=== PATIENT | male | born 1995 | race Caucasian/White ===

== ENCOUNTER 2019-09-29 11:28 | Emergency (ER) | payer OTHER, SELFPAY ==
[2019-09-29 12:00] VITALS: BP 136/67; PULSE 89; RESP 20; TEMP 37.1; O2SAT 99
--- NOTE | 2019-09-29 12:11 | ED.GENADULT ---
HPI - General Adult General Chief complaint: Unspecified Stated complaint: Flu like symptoms Time Seen by Provider: 09/29/19 12:11 Source: patient and family History of Present Illness HPI narrative: Patient presents with generalized body aches and fever. Some nasal congestion but denies any ear pain. Patient states he was nauseated last night but states nausea has resolved. Patient states he is tolerating liquids today denies any abdominal pain. States he is a normally healthy individual and he did miss work and needs a work note. Related Data Allergies Allergy/AdvReac Type Severity Reaction Status Date / Time No Known Allergies Allergy Verified 09/29/19 12:10 Review of Systems Review of Systems: Narrative: CONSTITUTIONAL: Denies fever, chills, or sweats. EYES: Denies visual changes, redness, or discharge. ENT: Denies rhinorrhea, congestion, sore throat, or otalgia. CARDIOVASCULAR: Denies chest pain, palpitations, or edema. RESPIRATORY: Denies cough or dyspnea. GASTROINTESTINAL: Denies abdominal pain, nausea, vomiting, or diarrhea. GENITOURINARY: Denies dysuria or hematuria. SKIN: Denies rash or itching. MUSCULOSKELETAL: Denies back pain, joint pain, or myalgia. NEUROLOGIC: Denies headache, numbness, or weakness. PSYCHIATRIC: Denies anxiety or depression. [facility] Family History Family History Mother Family history of thyroid disease Father Family history of liver disease Social History Social History Smoking status: Light tobacco smoker Alcohol intake: never Comments At time of signature, agree with nursing past medical, surgical, social and family history. There is no relevant family history pertinent to the presenting complaint Patient Exam Narrative: Exam Narrative: GENERAL: Well-appearing, well-nourished, and in no acute distress. HEAD: Normocephalic, atraumatic. EYES: PERRLA and EOMI. ENT: Nares clear, no epistaxis. Mucous membranes moist. Mild postnasal drainage NECK: Supple. CHEST: Clear to auscultation. No respiratory distress. HEART: Regular rate and rhythm. No murmur heard. Normal peripheral pulses. ABDOMEN: Soft, nontender, nondistended, normal active bowel sounds. EXTREMITIES: Normal range of motion. No edema. SKIN: Warm, dry, no rash. NEURO: No focal deficits. Alert and oriented x3. David Coma Scale Eye Opening: Spontaneous 4 [place] Coma Scale Motor: Obeys Commands 6 David Coma Scale Verbal: Oriented 5 David Coma Scale Total 15 Course Vital Signs Vital signs: Vital Signs Temperature 37.1 C 09/29/19 12:00 Pulse Rate 89 09/29/19 12:00 Respiratory Rate 20 09/29/19 12:00 Blood Pressure 136/67 09/29/19 12:00 Pulse Oximetry 99 09/29/19 12:00 Temperature 37.1 C 09/29/19 12:00 Pulse Rate 89 09/29/19 12:00 Respiratory Rate 20 09/29/19 12:00 Blood Pressure 136/67 09/29/19 12:00 Pulse Oximetry 99 09/29/19 12:00 Medical Decision Making Differential Diagnosis Differential Diagnosis: Influenza, viral illness, sinusitis, Vital Signs Vital Signs: Vital Signs Temperature 37.1 C 09/29/19 12:00 Pulse Rate 89 09/29/19 12:00 Respiratory Rate 09/29/19 12:00 Blood Pressure 136/67 09/29/19 12:00 Pulse Oximetry 99 09/29/19 12:00 Temperature 37.1 C 09/29/19 12:00 Pulse Rate 89 09/29/19 12:00 Respiratory Rate 09/29/19 12:00 Blood Pressure 136/67 09/29/19 12:00 Pulse Oximetry 99 09/29/19 12:00 . Please AUGUST schedule a followup visit with your personal physician for further evaluation and treatment. Including recheck and discussion of your blood pressure. If your symptoms persist, change or worsen significantly before you can contact your personal physician then please, without delay, go to the emergency department for further evaluation Lab Data Lab results reviewed: Yes I reviewed the patient's lab results.
== END 2019-09-29 12:25 | disposition home or self-care (01) ==
PROVIDERS: Emergency Provider Nurse Practitioner Family
DX: B34.9 Viral infection, unspecified (principal)
CPT/HCPCS: 87804; 99213; G0463

== ENCOUNTER → 2022-02-26 14:54 | Outpatient (CLI) | payer OTHER, SELFPAY ==
--- NOTE | ~2022-02-26 | XR_ITS ---
XR lumbar spine min 4V DATE: 02/26/2022 15:24 INDICATION: Low back pain, chronic TECHNIQUE: AP, lateral, bilateral oblique and coned lateral lumbosacral views COMPARISON: None FINDINGS: There is minimal dextroscoliosis of the lumbar spine. The lumbar pedicles are intact. No fr acture or bone destruction, spondylolysis or spondylolisthesis. Lumbar and lumbosacral interspaces ar e preserved. The sacral iliac joints are intact. IMPRESSION: Minimal scoliosis Reviewed, dictated and finalized at location B. IMPRESSION: Minimal scoliosis
== END ==
PROVIDERS: PCP Family Medicine; Visit Provider Family Medicine
DX: M54.50 Low back pain, unspecified (principal); M41.86 Other forms of scoliosis, lumbar region
CPT/HCPCS: 72110

== ENCOUNTER 2023-01-19 09:36 | Emergency (ER) | payer OTHER, SELFPAY ==
--- NOTE | ~2023-01-19 | CT_ITS ---
EXAMINATION: CT lumbar spine wo con DATE: 01/19/2023 11:05 INDICATION: Low back pain TECHNIQUE: Computed tomography (CT) of the lumbar spine was performed without intravenous contrast. T he dose-length product (DLP) was 1447.37 mGy-cm. Iterative reconstruction was used. COMPARISON: None FINDINGS: There are 4 mm of retrolisthesis of L5 on S1. There is no fracture. The vertebral body heig hts and intervertebral disc spaces are normal. 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 IMPRESSION: 1. Mild lumbar spondylosis at L5-S1 without acute osseous abnormality. Reviewed, dictated and finalized at location A.
[2023-01-19 09:40] VITALS: BP 145/100; PULSE 104; RESP 18; TEMP 36.9; O2SAT 99
[2023-01-19] MEDS: HYDROcodone/acetaminophen (*CRX) 5-325 MG TABLET 1 TAB PO (10:34)
[2023-01-19] MEDS: diazePAM (*CRX) 5 MG TABLET PO (10:37)
--- NOTE | 2023-01-19 10:44 | ED.GENADULT ---
HPI - General Adult General Chief complaint: Back Pain/Injury Stated complaint: lower back x 5 days Time Seen by Provider: 01/19/23 09:50 History of Present Illness HPI narrative: Riaz Martin is a 27 y/o male who presents with reports of having severe low back pain that started on 01/08 when he did some heavy lifting. He reports he has a history of spinal stenosis and he is concerned that he aggravated this with the heavy lifting. Related Data Allergies Allergy/AdvReac Type Severity Reaction Status Date / Time benzonatate Allergy Intermediate Hives Verified 01/19/23 09:36 [From David Humphries] Review of Systems Review of Systems: CONSTITUTIONAL: Denies fever, chills, or sweats. EYES: Denies visual changes, redness, or discharge. ENT: Denies rhinorrhea, congestion, sore throat, or otalgia. CARDIOVASCULAR: Denies chest pain, palpitations, or edema. RESPIRATORY: Denies cough or dyspnea. GASTROINTESTINAL: Denies abdominal pain, nausea, vomiting, or diarrhea. GENITOURINARY: Denies dysuria or hematuria. SKIN: Denies rash or itching. MUSCULOSKELETAL: Complains of right lateral lower back pain, reports pain moves down his right leg on the outer side down to his foot. NEUROLOGIC: Denies headache, numbness, dizziness, or weakness. PSYCHIATRIC: Denies anxiety or depression. PMFSH Past Medical History Medical History Elevated TSH Low back pain Spinal stenosis Surgical History Surgical History H/O adenoidectomy History of tympanoplasty of left ear Family History Family History Mother Hypertension Thyroid disorder Father Alcoholism Hypertension Grandparent Diabetes mellitus Hypertension Heart disease Other Diabetes mellitus Hypertension Depression Social History Social History Smoking status: Current every day smoker Alcohol intake: current Substance use: never Exam Narrative: GENERAL: Well-appearing, well-nourished, and in no acute distress. HEAD: Normocephalic, atraumatic. EYES: PERRLA and EOMI. ENT: Nares clear, no rhinorrhea or epistaxis. Mucous membranes moist. Oropharynx without tonsillar hypertrophy exudate or other lesions. Bilateral TMs pearly retana nonbulging NECK: Supple. No adenopathy or masses. No carotid bruits or JVD CHEST: Clear to auscultation. No respiratory distress. No wheezes rales or rhonchi HEART: Regular rate and rhythm. No murmur heard. Normal peripheral pulses. ABDOMEN: Soft, nontender, nondistended, normal active bowel sounds. EXTREMITIES: No cervical/thoracic/ lumbar spinal tenderness with palpation, Pain noted to right latera lower lumbar that is reproduced with palpation SKIN: Warm, dry, no rash. NEURO: No focal deficits. Alert and oriented x3. PSYCH: Normal mood and affect. Course Vital Signs Vital signs: Vital Signs Temperature 36.9 C 01/19/23 09:40 Pulse Rate 104 H 01/19/23 09:40 Respiratory Rate 18 01/19/23 09:40 Blood Pressure 145/100 H 01/19/23 09:40 Pulse Oximetry 99 01/19/23 09:40 Temperature 36.9 C 01/19/23 09:40 Pulse Rate 104 H 01/19/23 09:40 Respiratory Rate 18 01/19/23 09:40 Blood Pressure 145/100 H 01/19/23 09:40 Pulse Oximetry 99 01/19/23 09:40 Medical Decision Making [facility] Narrative Medical decision making narrative: No Cervical/thoracic/lumbar spinal tenderness with palpation Positive right lateral lumbar pain with palpation No saddle paraesthesia No loss of bowel or bladder Ambulatory Started on FLexeril and Meloxicam from PCP clinic yesterday which he started today. He report that the pain is at the worse in the morning when he wakes up and as the day goes on it slowly improves to a dull ache Plan to get a CT and treat his pain Concern for : Lumbar compression fra
== END 2023-01-19 12:39 | disposition home or self-care (01) ==
PROVIDERS: Emergency Provider Nurse Practitioner Family; PCP Family Medicine
DX: S39.012A Strain of muscle, fascia and tendon of lower back, initial encounter (principal); M54.41 Lumbago with sciatica, right side; F17.200 Nicotine dependence, unspecified, uncomplicated; M47.816 Spondylosis without myelopathy or radiculopathy, lumbar region; M48.061 Spinal stenosis, lumbar region without neurogenic claudication; X50.0XXA Overexertion from strenuous movement or load, initial encounter
CPT/HCPCS: 72131; 96372; 99284; A9270; J1100

== ENCOUNTER 2024-08-04 08:57 | Outpatient (CLI) | payer OTHER, SELFPAY ==
--- NOTE | ~2024-08-04 | XR_ITS ---
EXAMINATION: XR chest 2V DATE: 08/04/2024 09:08 INDICATION: Wheezing TECHNIQUE: PA and lateral views of the chest were obtained. COMPARISON: None FINDINGS: The lungs are clear with no focal airspace opacities, pulmonary edema, pleural effusion or pneumothor ax. The cardiomediastinal silhouette is normal. Mild thoracic spondylosis. IMPRESSION: 1. No acute cardiopulmonary disease. Reviewed, dictated and finalized at location A. [employer]
== END 2024-08-04 08:58 | disposition home or self-care (01) ==
LOC: MICIMG 09:01
PROVIDERS: PCP Nurse Practitioner Adult Health; Visit Provider Nurse Practitioner Adult Health
DX: R06.2 Wheezing (principal)
CPT/HCPCS: 71046